=== PATIENT | male | born 1965 | race Hispanic/Latino ===

== ENCOUNTER 2021-03-05 14:18 | Emergency (ER) | payer OTHER ==
[~2021-03-05] VITALS: Ht 170.2 cm; Wt 74.8 kg
[2021-03-05] MEDS ORDERED: CEPHALEXIN500 MG PO (17:57)
--- NOTE | 2021-03-07 17:14 | EKG ---
[facility] [address] [facility] [place] [address] Signed Normal sinus rhythm Normal ECG No previous ECGs available Confirmed by KENN MEYER MD ([id number]) on 03/07/2021 5:14:17 PM Electronically Signed By: KENN MEYER MD 03/07/21 1714 PATIENT NAME: ROYAL BRIGGS Electrocardiogram DATE OF : 69 PHYSICIAN: KENN MEYER MD REPORT #: [id number] REPORT IS CONFIDENTIAL AND NOT TO BE RELEASED WITHOUT AUTHORIZATION
== END 2021-03-05 18:21 | disposition home or self-care (01) ==
LOC: ED 14:18
DX: L03.116 Cellulitis of left lower limb (principal); L03.115 Cellulitis of right lower limb
CPT/HCPCS: 80053; 83880; 84484; 85025; 85379; 86140; 93005; 93010; 99283-25